=== PATIENT | female | born 1975 | race Caucasian/White ===

== ENCOUNTER 2018-07-10 08:31 | Outpatient (CLI) | payer OTHER ==
[2018-07-10] MEDS ORDERED: CLONAZEPAM2 M1 PO (16:32)
[2018-07-10] MEDS ORDERED: BIOFREEZE118 ML TOP (16:33)
[2018-07-10] MEDS ORDERED: SINGULAIR10 MG PO (16:33)
[2018-07-10] MEDS ORDERED: FLONASE16 GM NASAL (16:33)
[2018-07-10] MEDS ORDERED: PROTONIX40 MG PO (16:34)
[2018-07-10] MEDS ORDERED: PEPCID20 MG PO (16:34)
== END 2018-07-10 08:36 | disposition home or self-care (01) ==
LOC: EKG 08:31
DX: Z01.810 Encounter for preprocedural cardiovascular examination (principal)

== ENCOUNTER 2018-07-10 11:30 | Inpatient (IN) | payer OTHER ==
[~2018-07-10] VITALS: Ht 165.1 cm; Wt 100.2 kg
[2018-07-10] MEDS ORDERED: CLONAZEPAM2 M1 PO (16:32)
[2018-07-10] MEDS ORDERED: FLONASE16 GM NASAL (16:33)
[2018-07-10] MEDS ORDERED: SINGULAIR10 MG PO (16:33)
[2018-07-10] MEDS ORDERED: BIOFREEZE118 ML TOP (16:33)
[2018-07-10] MEDS ORDERED: PROTONIX40 MG PO (16:34)
[2018-07-10] MEDS ORDERED: PEPCID20 MG PO (16:34)
[2018-07-19] MEDS ORDERED: CIPRO500 MG PO ×2 (07:40→07:43)
[2018-07-19] MEDS ORDERED: OXYC1TAB9 PO (07:40)
[2018-07-19] MEDS ORDERED: AMOX1TAB5 PO (08:33)
== END 2018-07-19 10:12 | disposition home or self-care (01) | DRG 743 ==
LOC: EDUNIT# 11:30 → O/R 07-17 09:04 → OB/GYN 07-17 09:04
PROVIDERS: ADMIT Obstetrics & Gynecology Gynecology
PROC: 0UT50ZZ Resection of Right Fallopian Tube, Open Approach (ICD-10-PCS; 2018-07-17)
PROC: 0UT90ZZ Resection of Uterus, Open Approach (ICD-10-PCS; principal; 2018-07-17 11:30)
DX: N93.8 Other specified abnormal uterine and vaginal bleeding (principal); D25.1 Intramural leiomyoma of uterus; I10 Essential (primary) hypertension; N72 Inflammatory disease of cervix uteri; D25.0 Submucous leiomyoma of uterus; D25.2 Subserosal leiomyoma of uterus